=== PATIENT | female | born 1940 | race Caucasian/White ===

== ENCOUNTER → 2017-08-27 | Outpatient (CLI) | payer MEDICARE, OTHER | END | disposition home or self-care (01) | LOC: CFH 07:08 | PROVIDERS: ATTEND Internal Medicine | DX: M48.061 Spinal stenosis, lumbar region without neurogenic claudication (principal); M51.26 Other intervertebral disc displacement, lumbar region; G89.29 Other chronic pain | CPT/HCPCS: 72148 ==

== ENCOUNTER → 2020-02-29 | Outpatient (CLI) | payer MEDICARE, OTHER | END | disposition home or self-care (01) | LOC: CFH 08:34 | PROVIDERS: ATTEND Orthopaedic Surgery | DX: M43.17 Spondylolisthesis, lumbosacral region (principal); M51.37 Other intervertebral disc degeneration, lumbosacral region; M41.87 Other forms of scoliosis, lumbosacral region | CPT/HCPCS: 72110 ==

== ENCOUNTER → 2020-05-02 | Outpatient (CLI) | payer MEDICARE, OTHER | END | disposition home or self-care (01) | LOC: CFH 09:09 | PROVIDERS: ATTEND Physician Assistant Surgical | DX: N20.0 Calculus of kidney (principal); M51.16 Intervertebral disc disorders with radiculopathy, lumbar region; M48.062 Spinal stenosis, lumbar region with neurogenic claudication; M43.10 Spondylolisthesis, site unspecified | CPT/HCPCS: 72131 ==